=== PATIENT | female | born 1980 | race Caucasian/White ===

== ENCOUNTER 2016-03-31 21:17 | Emergency (ER) | payer OTHER ==
[~2016-03-31] VITALS: Ht 172.7 cm; Wt 72.7 kg
[~2016-03-31 21:17] MED LIST: BACTRIM DS 8001 TAB PO; DOXYCYCLINE 10100 MG PO; FLEXERIL 1010 MG/TAB PO; NO HOME MEDICATIONS; NORCO 325 MG-51 TAB PO; PHENERGAN W/CO120 ML PO; PRENATAL VITAMI1 TA5 PO
[2016-03-31 21:19] VITALS: BP 132/91; PULSE 95; TEMP 98.8
[2016-03-31] MEDS ORDERED: AMOXICILLIN 50500 MG PO (21:45)
== END 2016-03-31 21:55 | disposition home or self-care (01) ==
LOC: COL.ER 21:17
DX: J02.0 Streptococcal pharyngitis (principal)

== ENCOUNTER 2016-06-12 16:33 | Emergency (ER) | payer OTHER ==
[~2016-06-12] VITALS: Ht 172.7 cm; Wt 68.2 kg
[~2016-06-12 16:33] MED LIST changes: +AMOXICILLIN 50500 MG PO
[2016-06-12 16:35] VITALS: TEMP 98.4
[2016-06-12] MEDS ORDERED: NORCO 325 MG-51 TAB PO (18:18)
[2016-06-12 18:42] VITALS: BP 113/71; PULSE 83
== END 2016-06-12 18:40 | disposition home or self-care (01) ==
LOC: COL.ER 16:33
DX: M54.31 Sciatica, right side (principal)
CPT/HCPCS: J1885; J2360

== ENCOUNTER 2016-08-27 11:12 | Emergency (ER) | payer OTHER ==
[~2016-08-27] VITALS: Ht 172.7 cm; Wt 65.9 kg
[2016-08-27 11:16] VITALS: BP 119/83; TEMP 98.7
[2016-08-27 12:48] LABS: BASO % 0.3 % (0.0-2.0); EOS # 0.1 (0.0-0.7); EOS % 0.8 % (0-4.0); GRAN # 6.6 (1.4-6.5); GRAN % 73.6 % (42.2-75.2); HEMATOCRIT 40.7 % (37.0-47.0); HEMOGLOBIN 13.7 g/dl (12.5-16.0); LYMPH # 1.6 (1.2-3.4); LYMPH % 18.2 % (20.0-51.0); MEAN CELL VOLUME 92 fl (80.0-100.0); MEAN CORPUSCULAR HEMOGLOBIN 31 pg (27.0-31.0); MEAN CORPUSCULAR HGB CONC 34 g/dl (33.0-37.0); MEAN PLATELET VOLUME 12.9 fl (7.4-10.4); MONO # 0.6 (0.1-0.6); MONO % 6.7 % (1.7-9.3); PLATELET COUNT 155 K/mm3 (130-400); RED BLOOD COUNT 4.41 M/mm3 (4.10-5.30); REDCELL DISTRIBUTION WIDTH-CV 12.5 % (11.5-14.5)
[2016-08-27 13:54] VITALS: PULSE 85
== END 2016-08-27 13:55 | disposition home or self-care (01) ==
LOC: COL.ER 11:12
PROVIDERS: Nurse Practitioner
DX: M25.562 Pain in left knee (principal)

== ENCOUNTER 2017-09-23 10:08 | Emergency (ER) | payer SELFPAY ==
[~2017-09-23] VITALS: Ht 172.7 cm; Wt 78.1 kg
[2017-09-23 10:15] VITALS: TEMP 98.5
[2017-09-23] MEDS ORDERED: FLEXERIL 1010 MG/TAB PO (11:12)
[2017-09-23] MEDS ORDERED: PREDNISONE20 MG PO (11:12)
[2017-09-23 11:31] VITALS: BP 98/61; PULSE 67
== END 2017-09-23 11:32 | disposition home or self-care (01) ==
LOC: COL.ER 10:08
DX: G57.02 Lesion of sciatic nerve, left lower limb (principal); F17.210 Nicotine dependence, cigarettes, uncomplicated; X50.0XXA Overexertion from strenuous movement or load, initial encounter

== ENCOUNTER 2018-03-13 13:51 | Emergency (ER) | payer SELFPAY ==
[~2018-03-13] VITALS: Ht 172.7 cm; Wt 77.3 kg
[~2018-03-13 13:51] MED LIST changes: +PREDNISONE20 MG PO
[2018-03-13 13:54] VITALS: BP 124/78; TEMP 98.4
[2018-03-13 14:24] LABS: COLLECTION METHOD CLEAN CATCH
[2018-03-13 14:30] LABS: BASO # 0.1 (0.0-0.2); BASO % 0.6 % (0.0-2.0); EOS # 0.1 (0.0-0.7); EOS % 1.5 % (0-4.0); GRAN # 4.4 (1.4-6.5); GRAN % 55.9 % (42.2-75.2); HEMATOCRIT 41.9 % (37.0-47.0); HEMOGLOBIN 13.9 g/dl (12.5-16.0); LYMPH # 2.6 (1.2-3.4); LYMPH % 32.9 % (20.0-51.0); MEAN CELL VOLUME 94 fl (80.0-100.0); MEAN CORPUSCULAR HEMOGLOBIN 31 pg (27.0-31.0); MEAN CORPUSCULAR HGB CONC 33 g/dl (33.0-37.0); MEAN PLATELET VOLUME 12.6 fl (7.4-10.4); MONO # 0.7 (0.1-0.6); MONO % 8.8 % (1.7-9.3); PLATELET COUNT 183 K/mm3 (130-400); RED BLOOD COUNT 4.48 M/mm3 (4.10-5.30)
[2018-03-13 14:39] LABS: PH 5 (5-8); URINE APPEARANCE Hazy; URINE BACTERIA Moderate /hpf; URINE BILIRUBIN Negative (NEGATIVE); URINE BLOOD 1+ (NEGATIVE); URINE COLOR Yellow; URINE GLUCOSE Negative (NEGATIVE); URINE KETONE Negative (NEGATIVE); URINE LEUKOCYTE ESTERASE 1+ (NEGATIVE); URINE NITRATE Positive (NEGATIVE); URINE PROTEIN(semi-quant) Negative (NEGATIVE); URINE UROBILINOGEN Negative (NEGATIVE)
[2018-03-13 14:41] LABS: ALANINE AMINOTRANSFERASE 21 U/L (9-52); ALBUMIN 4.6 gm/dL (3.5-5.0); ALKALINE PHOSPHATASE 67 U/L (50-136); ANION GAP 5 mmol/L (7-16); AST,SGOT 22 U/L (15-37); BILIRUBIN,TOTAL 0.6 mg/dL (0.0-1.0); BLOOD UREA NITROGEN 10 mg/dL (7-17); CARBON DIOXIDE 31 mmol/L (22-30); CHLORIDE 106 mmol/L (98-107); CREATININE, serum 0.65 mg/dL (0.52-1.25); GLUCOSE 86 mg/dL (74-106); SODIUM 142 mmol/L (137-145); TOTAL PROTEIN 8.3 gm/dL (6.4-8.2)
[2018-03-13 15:10] LABS: C-REACTIVE PROTEIN < 0.5 mg/dL (0.0-0.9)
[2018-03-13] MEDS ORDERED: CEPHALEXIN500 M1 PO (15:25)
[2018-03-13 15:38] VITALS: PULSE 74
== END 2018-03-13 15:38 | disposition home or self-care (01) ==
LOC: COL.ER 13:51
PROVIDERS: Physician Assistant
DX: N39.0 Urinary tract infection, site not specified (principal)
CPT/HCPCS: J0696; J1885

== ENCOUNTER 2018-06-15 07:08 | Emergency (ER) | payer SELFPAY ==
[~2018-06-15] VITALS: Ht 172.7 cm; Wt 81.8 kg
[~2018-06-15 07:08] MED LIST changes: +CEPHALEXIN500 M1 PO
[2018-06-15 07:12] VITALS: BP 106/74; TEMP 98.8
[2018-06-15 09:04] VITALS: PULSE 92
== END 2018-06-15 09:03 | disposition home or self-care (01) ==
LOC: COL.ER 07:08
DX: M54.5 Low back pain (principal); F17.210 Nicotine dependence, cigarettes, uncomplicated
CPT/HCPCS: J1885

== ENCOUNTER 2019-03-03 14:27 | Emergency (ER) | payer SELFPAY ==
[~2019-03-03] VITALS: Ht 172.7 cm; Wt 79.5 kg
[2019-03-03 14:53] VITALS: TEMP 98.5
[2019-03-03 15:18] LABS: COLLECTION METHOD CLEAN CATCH
[2019-03-03 15:30] LABS: MUCOUS Present /lpf; PH 5 (5-8); URINE APPEARANCE Hazy; URINE BACTERIA None Seen /hpf; URINE BILIRUBIN Negative (NEGATIVE); URINE BLOOD Negative (NEGATIVE); URINE COLOR Yellow; URINE GLUCOSE Negative (NEGATIVE); URINE KETONE Negative (NEGATIVE); URINE LEUKOCYTE ESTERASE 2+ (NEGATIVE); URINE NITRATE Negative (NEGATIVE); URINE PROTEIN(semi-quant) Negative (NEGATIVE)
[2019-03-03 16:42] LABS: BASO # 0.1 (0.0-0.2); BASO % 0.6 % (0.0-2.0); EOS # 0.2 (0.0-0.7); EOS % 1.8 % (0-4.0); GRAN # 4.8 (1.4-6.5); GRAN % 53.4 % (42.2-75.2); HEMATOCRIT 40.3 % (37.0-47.0); HEMOGLOBIN 13.2 g/dl (12.5-16.0); LYMPH # 3.3 (1.2-3.4); LYMPH % 36.3 % (20.0-51.0); MEAN CELL VOLUME 93 fl (80.0-100.0); MEAN CORPUSCULAR HEMOGLOBIN 31 pg (27.0-31.0); MEAN CORPUSCULAR HGB CONC 33 g/dl (33.0-37.0); MONO # 0.7 (0.1-0.6); MONO % 7.7 % (1.7-9.3); PLATELET COUNT 173 K/mm3 (130-400); RED BLOOD COUNT 4.32 M/mm3 (4.10-5.30)
[2019-03-03 16:50] LABS: ALANINE AMINOTRANSFERASE 18 U/L (9-52); ALBUMIN 4.6 gm/dL (3.5-5.0); ALKALINE PHOSPHATASE 72 U/L (50-136); ANION GAP 7 mmol/L (7-16); AST,SGOT 25 U/L (15-37); BILIRUBIN,TOTAL 0.4 mg/dL (0.0-1.0); BLOOD UREA NITROGEN 12 mg/dL (7-17); C-REACTIVE PROTEIN < 0.5 mg/dL (0.0-0.9); CALCIUM 9.7 mg/dL (8.4-10.2); CARBON DIOXIDE 25 mmol/L (22-30); CHLORIDE 107 mmol/L (98-107); CREATININE, serum 0.66 (0.52-1.25); GLUCOSE 90 mg/dL (74-106); LIPASE 81 U/L (23-300); POTASSIUM 3.7 mmol/L (3.4-5.0); SODIUM 139 mmol/L (137-145); TOTAL PROTEIN 8.2 gm/dL (6.4-8.2)
[2019-03-03] MEDS ORDERED: OMNICEF 300MG300 MG PO (18:22)
[2019-03-03 18:36] VITALS: BP 112/80; PULSE 72
== END 2019-03-03 18:39 | disposition home or self-care (01) ==
LOC: COL.ER 14:27
PROVIDERS: Emergency Medicine; Family Medicine
DX: N39.0 Urinary tract infection, site not specified (principal); F17.210 Nicotine dependence, cigarettes, uncomplicated; Z98.51 Tubal ligation status
CPT/HCPCS: J1885; J2405; J7030; Q9967

== ENCOUNTER 2020-04-26 07:44 | Emergency (ER) | payer SELFPAY ==
[~2020-04-26] VITALS: Ht 172.7 cm; Wt 79.5 kg
[~2020-04-26 07:44] MED LIST changes: +OMNICEF 300MG300 MG PO
[2020-04-26 07:48] VITALS: BP 128/86; TEMP 97.7
[2020-04-26] MEDS ORDERED: BACTRIM DS 8001 TAB PO (08:12)
[2020-04-26 08:25] VITALS: PULSE 82
== END 2020-04-26 08:25 | disposition home or self-care (01) ==
LOC: COL.ER 07:44
DX: L03.113 Cellulitis of right upper limb (principal); F17.200 Nicotine dependence, unspecified, uncomplicated; Z91.040 Latex allergy status

== ENCOUNTER 2020-12-06 21:44 | Emergency (ER) | payer SELFPAY ==
[~2020-12-06] VITALS: Ht 172.7 cm; Wt 81.8 kg
[2020-12-06 22:13] VITALS: TEMP 97.3
[2020-12-06 23:40] VITALS: BP 116/74; PULSE 81
== END 2020-12-06 23:40 | disposition home or self-care (01) ==
LOC: COL.ER 21:44
DX: S86.912A Strain of unspecified muscle(s) and tendon(s) at lower leg level, left leg, initial encounter (principal); F17.210 Nicotine dependence, cigarettes, uncomplicated; X50.0XXA Overexertion from strenuous movement or load, initial encounter; Y92.59 Other trade areas as the place of occurrence of the external cause; Y99.0 Civilian activity done for income or pay
CPT/HCPCS: L1846

== ENCOUNTER 2022-05-28 09:14 | Emergency (ER) | payer SELFPAY ==
[~2022-05-28] VITALS: Ht 172.7 cm; Wt 81.8 kg
[2022-05-28 09:17] VITALS: TEMP 98.2
[2022-05-28] MEDS ORDERED: PREDNISONE50 MG PO (10:33)
[2022-05-28] MEDS ORDERED: NORCO 325 MG-51 TAB PO (10:33)
[2022-05-28] MEDS ORDERED: FLEXERIL 1010 MG/TAB PO (10:33)
[2022-05-28 11:37] VITALS: BP 125/85; PULSE 91
== END 2022-05-28 11:42 | disposition home or self-care (01) ==
LOC: COL.ER 09:14
DX: M54.50 Low back pain, unspecified (principal); F17.210 Nicotine dependence, cigarettes, uncomplicated; Z91.040 Latex allergy status; X50.0XXA Overexertion from strenuous movement or load, initial encounter; Y92.59 Other trade areas as the place of occurrence of the external cause; Y99.0 Civilian activity done for income or pay
CPT/HCPCS: J7512

== ENCOUNTER → 2023-10-03 | Outpatient (CLI) | payer OTHER ==
[~2023-10-03] MED LIST changes: +PREDNISONE50 MG PO; +ZOFRAN ODT4 MG PO
== END ==
LOC: COL.RAD 13:02
DX: Z02.71 Encounter for disability determination (principal); Q65.89 Other specified congenital deformities of hip; M16.6 Other bilateral secondary osteoarthritis of hip; M47.815 Spondylosis without myelopathy or radiculopathy, thoracolumbar region

== ENCOUNTER → 2023-12-12 | Outpatient (CLI) | payer MEDICAID | LOC: MC.RAD 13:30 | DX: Z12.31 Encounter for screening mammogram for malignant neoplasm of breast (principal); N63.10 Unspecified lump in the right breast, unspecified quadrant ==

== ENCOUNTER → 2023-12-24 | Outpatient (CLI) | payer MEDICAID | LOC: MC.RAD 12:25 | DX: N60.01 Solitary cyst of right breast (principal) ==